=== PATIENT | female | born 1950 | race African-American/Black ===

== ENCOUNTER 2017-08-15 13:46 | Emergency (ER) | payer MEDICARE ==
--- NOTE | 2017-08-15 14:42 | UC ---
Cardiac HPI - HPI Summary HPI Summary: 67 y/o female PMHX HTN, dyslipidemia presents to the urgent care c/o burning chest and epigastric discomfort for the past 4 days. Pt states pain is on and off for few minutes. She took some tums with mild relief. Pain is 2/10 now and radiating to her chest. Pt denies SOB, N/V/D, dizziness. She has not taken her BP medication today. 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 Onset/Duration: Gradual Onset, Lasting Days - 4 days, Worse Since - today Timing: Intermittent Episodes Lasting: - minutes Initial Severity: Mild Current Severity: Mild Pain Intensity: 2 Chest Pain Location: Lower Sternal Character: Burning Aggravating Factor(s): Nothing Alleviating Factor(s): Rest Associated Signs & Symptoms: Positive: Abdominal Pain - epigastric. Negative: Fever - Risk Factors Pulmonary Embolism Risk Factors: Negative Cardiac Risk Factors: Hypertension, Elevated Lipids Atrial Fibrillation: Negative TAD Risk Factors: Negative - Allergy/Home Medications Allergies/Adverse Reactions: Allergies Allergy/AdvReac Type Severity Reaction Status Date / Time Azithromycin [From Zithromax] AdvReac GI Upset Verified 08/15/17 19:39 PMH/Surg Hx/FS Hx/Imm Hx Previously Healthy: Yes Endocrine History: Dyslipidemia Cardiovascular History: Hypertension Other History Of: Negative For: HIV, Hepatitis B, Hepatitis C, Anticoagulant Therapy - Surgical History Surgical History: Yes Surgery Procedure, Year, and Place: HYSTERECTOMY 1984;. 2011 BUNIONECTOMY WITH PINNING - Family History Known Family History: Positive: Cardiac Disease, Hypertension, Diabetes - Social History Occupation: Retired Alcohol Use: None Substance Use Type: None Smoking Status (MU): Never Smoked Tobacco - Immunization History Vaccination Up to Date: Yes Review of Systems Constitutional: Negative Skin: Negative Eyes: Negative ENT: Negative Respiratory: Negative Cardiovascular: Negative Gastrointestinal: Abdominal Pain - epigastric burning pain, Nausea - first day resolve today Genitourinary: Negative Motor: Negative Neurovascular: Negative Musculoskeletal: Negative Neurological: Negative Psychological: Negative Is Patient Immunocompromised?: No All Other Systems Reviewed And Are Negative: Yes Physical Exam Triage Information Reviewed: Yes Vital Signs: Initial Vital Signs Temp 97.9 F 08/15/17 14:12 Pulse 105 08/15/17 14:12 Resp 18 08/15/17 14:12 BP 162/73 08/15/17 14:12 Pulse Ox 100 08/15/17 14:12 - Additional Comments Vital Signs Reviewed: Yes General:Patient is a well developed and nourished female who is sitting comfortable in the examining table. Patient is not in any acute respiratory distress. Eyes: Positive: Conjunctiva Clear - PERRLA, EOMI, fundi grossly normal ENT: Positive: Normal ENT inspection, Hearing grossly normal, Pharynx normal, TMs normal Neck: Positive: Supple, Nontender, No Lymphadenopathy Respiratory: Positive: Chest non-tender, Lungs clear, Normal breath sounds, No respiratory distress Cardiovascular: Positive: RRR,S1 and S2 present, No Murmur, Pulses Normal, Brisk Capillary Refill Abdomen Description: Positive:Abd: Flat with no distention. No surface trauma, scars, incisions. hyperactive bowel sounds present in all four quadrants. mild tenderness on depp palpation over the epigastric area, no guarding, rigidity to palpation. No masses palpated, no pulsation in epigastric area. No organomegaly. Negative [place] signs. No periumbilical tenderness. No rebound in the lower quadrants. NT over [place] point.. Good femoral pulses bilaterally. No hernia noted. No CVAT bilaterally Musculoskeletal: Positive: Strength Intact, ROM Intact, No Edema,FROM in all major joints, no edema, no cyanosis or clubbing. Neuro: Alert and oriented x 3. No acute neurological deficits. Speech is normal. Psycological: WNL Skin: Dry and warm - Assessment/Plan Course Of Treatment: 67 y/o female PMHX HTN, dyslipidemia presents to the urgent care c/o chest burning and epigastric discomfort for the past 4 days. Pt states pain is on and off for few minutes. She took some tums with mild relief. Pain is 2/10 and radiating to her chest. Pt denies SOB, N/V/D, dizziness. She has not taken her BP medication today. Hx obtained. EKG:NSR at 98bpm with ST depression at leads I, II and II and ST-depression on leads V4-V5-V6. No other EKG for comparison at this moment. I consulted Pt's symptoms with DR Kong and he recommended Pt to go to the ER by ambulance trnasfer for further evaluation and treatment. I called [facility] and Spoke to Brigitte Martinez and she accepted the patient. Pt was transferred to the ER via ambulance. Pt left the clinic A&OX3 and hemodynamically stable in the ambulance. - Differential Diagnoses - Chest Pain Differential Diagnosis/HQI/PQRI: Acute IL, Angina, GI Disease - Differential Diagnoses - Hypertension Differential Diagnosis/HQI PQRI: Myocardial Infarction - Differential Diagnoses - Palpitations Differential Diagnosis/HQI/PQRI: Coronary Artery Disease - Clinical Impression Provider Diagnoses: 1- Acute epigastric pain. 2-Abnormal EKG r/o ACS. 3- uncontrolled HTN. 4- Tachycardia - Physician Notifications Discussed Patient Care With: Jorge Alberto Kong - DR Kong recommends Pt to go immediately to the ER for further treatment. Discharge - Discharge Plan Condition: Stable Disposition: TRANS HIGHER LVL OF CARE FAC Referrals: Swathi Presley MD [Primary Care Provider] -
[2017-08-15 16:21] VITALS: BP 156/76
== END 2017-08-15 15:00 | disposition short-term general hospital (02) ==
LOC: UCEAST 13:46
DX: R10.13 Epigastric pain (principal); R94.31 Abnormal electrocardiogram [ECG] [EKG]; I10 Essential (primary) hypertension; R00.0 Tachycardia, unspecified
CPT/HCPCS: 93005; 99213; G0463

== ENCOUNTER 2017-08-15 15:13 | Observation (INO) | payer MEDICARE ==
[2017-08-15] MEDS ORDERED: Pantoprazole IV* 40 MG IV ONE (16:01)
[2017-08-15] MEDS ORDERED: NS 0.9% 1000 ML* 1,000 ML IV ONE (16:01)
[2017-08-15 16:39] LABS: Hematocrit 41 % (35-47); Hemoglobin 13.3 g/dl (12.0-16.0); Mean Corpuscular HGB Conc 33 g/dl (31-36); Mean Corpuscular Hemoglobin 25 pg (27-31); Mean Corpuscular Volume 75 fL (80-97); Mean Platelet Volume 10 um3 (7.4-10.4); Red Blood Count 5.42 10^6/ul (4.0-5.4); Red Cell Distribution Width 14 % (10.5-15); White Blood Count 5.3 10^3/ul (3.5-10.8)
--- NOTE | 2017-08-15 16:39 | RAD ---
HISTORY: Epigastric, lower chest pain COMPARISONS: None VIEWS: 1: frontal portable view of the chest at 4:15 PM FINDINGS: LINES AND TUBES: None. CARDIOMEDIASTINAL SILHOUETTE: The cardiomediastinal silhouette is normal for portable technique. PLEURA: The costophrenic angles are sharp. No pleural abnormalities are noted. LUNG PARENCHYMA: The lungs are clear. ABDOMEN: The upper abdomen is clear. There is no subphrenic gas. BONES AND SOFT TISSUES: No bone or soft tissue abnormalities are noted. IMPRESSION: NO ACTIVE CARDIOPULMONARY DISEASE.
[2017-08-15 16:52] LABS: ALT 18 U/L (7-52); AST 22 U/L (13-39); Albumin 4.6 g/dL (3.2-5.2); Alkaline Phosphatase 73 U/L (34-104); Anion Gap 10 mmol/L (2-11); BUN/Creatinine Ratio 12.3 (8-20); Blood Urea Nitrogen 14 mg/dL (6-24); C Reactive Protein < 1.00 mg/L (< 5.00); CO2 Carbon Dioxide 29 mmol/L (22-32); Calcium 9.9 mg/dL (8.6-10.3); Chloride 100 mmol/L (101-111); Creatine Kinase 55 U/L (10-223); EGFR African American 61.1 (>60); EGFR Non-African American 47.5 (>60); Globulin 3.7 g/dL (2-4); Glucose 100 mg/dL (70-100); Lipase 13 U/L (11.0-82.0); Magnesium 1.9 mg/dL (1.9-2.7); Sodium 139 mmol/L (133-145); Total Protein 8.3 g/dL (6.4-8.9)
[2017-08-15 17:06] LABS: TSH (Thyroid Stimulating Horm) 0.81 mcIU/mL (0.34-5.60)
[2017-08-15 18:07] LABS: Urine Bacteria 1+ (Absent); Urine Bilirubin Negative (Negative); Urine Glucose Negative (Negative); Urine Nitrite Negative (Negative)
--- NOTE | 2017-08-15 18:15 | ED ---
Jassi Trevino Thomas, scribed for Florentin Max MD on 08/15/17 at 1601 . HPI Chest Pain - HPI Summary HPI Summary: The patient is a 67 year old female referred from Urgent Care with heartburn that has been intermittent over the last two weeks. She has no pain in the ED, but she did have pain earlier today, prompting evaluation. The pain does not radiate and is described as heartburn. The pain is 10/10 at its worst, but 0/10 in the ED. It is aggravated by some foods and is alleviated by Tums. The patient notes occasional bouts of nausea. She denies SOB and leg swelling. - History of Current Complaint Chief Complaint: EDChestPainROMI Time Seen by Provider: 08/15/17 15:48 Hx Obtained From: Patient Hx Last Menstrual Period: Not for years. Onset/Duration: Started Weeks Ago - 2, Still Present Timing: Intermittent Initial Severity: Moderate Current Severity: None Pain Intensity: 0 Pain Scale Used: 0-10 Numeric Chest Pain Radiates: No Character: Burning Aggravating Factor(s): Other: - Some foods Alleviating Factor(s): Other: - Tums Associated Signs and Symptoms: Positive: Chest Pain, Nausea. Negative: Shortness of Breath, Edema - Allergy/Home Medications Allergies/Adverse Reactions: Allergies Allergy/AdvReac Type Severity Reaction Status Date / Time Azithromycin [From Zithromax] Allergy GI Upset Verified 10/20/15 08:35 Home Medications: Home Medications Aspirin EC Low Dose* [Ecotrin EC Low Dose 81 MG*] 81 mg PO DAILY 08/15/17 [ History Confirmed 08/15/17] Calcium Carbonate-Vitamin D [Calcium 600+D] 1 tab PO DAILY 08/15/17 [History Confirmed 08/15/17] Cetirizine HCl [All Day Allergy] 10 mg PO DAILY PRN 08/15/17 [History Confirmed 08/15/17] Conjugated Estrogens VAG CM* [Premarin VAG CREAM*] 0.5 applic VAGINAL .SEE DIRECTIONS 08/15/17 [History Confirmed 08/15/17] Magnesium 250 mg PO DAILY 08/15/17 [History Confirmed 08/15/17] Mometasone Furoate (Nasal) [Mometasone Furoate] 50 mcg NA BID PRN 08/15/17 [ History Confirmed 08/15/17] [place]-3 Fatty Acids [Fish Oil] 1,000 mg PO DAILY 08/15/17 [History Confirmed ] Potassium Chlor TAB* [Klor Con ER TAB*] 10 meq PO DAILY 08/15/17 [History Confirmed 08/15/17] PMH/Surg Hx/FS Hx/Imm Hx Previously Healthy: Yes Endocrine/Hematology History: Denies: Hx Anticoagulant Therapy, Hx Diabetes Cardiovascular History: Reports: Hx Hypertension Denies: Hx Congestive Heart Failure, Hx Deep Vein Thrombosis, Hx Myocardial Infarction, Hx Pacemaker/ICD Respiratory History: Denies: Hx Asthma, Hx Chronic Obstructive Pulmonary Disease (COPD), Hx Lung Cancer, Hx Pneumonia, Hx Pulmonary Embolism GI History: Denies: Hx Gall Bladder Disease, Hx Gastrointestinal Bleed, Hx Ulcer, Hx Urosepsis History: Denies: Hx Kidney Stones, Hx Renal Disease Musculoskeletal History: Denies: Hx Rheumatoid Arthritis, Hx Osteoporosis Sensory History: Denies: Hx Hearing Aid Neurological History: Denies: Hx Dementia, Hx Migraine, Hx Seizures, Hx Transient Ischemic Attacks (TIA) Psychiatric History: Denies: Hx Anxiety, Hx Depression, Hx Panic Disorder, Hx Schizophrenia, Hx Bipolar Disorder - Cancer History Hx Chemotherapy: No Hx Radiation Therapy: No - Surgical History Surgery Procedure, Year, and Place: HYSTERECTOMY 1984;. 2011 BUNIONECTOMY WITH PINNING Infectious Disease History: No Infectious Disease History: Denies: Traveled Outside the [place] in Last 30 Days - Family History Known Family History: Positive: Cardiac Disease, Hypertension, Diabetes - Social History Alcohol Use: None Substance Use Type: Reports: None Smoking Status (MU): Never Smoked Tobacco Review of Systems Positive: Chest Pain Negative: Shortness Of Breath Positive: Nausea Negative: Edema All Other Systems Reviewed And Are Negative: Yes Physical Exam - Summary Physical Exam Summary: General: well-appearing, no pain distress Skin: warm, color reflects adequate perfusion, dry Head: normal Eyes: EOMI, VIRY ENT: normal Neck: supple, nontender Respiratory: CTA, breath sounds present Cardiovascular: RRR Abdomen: Soft. There is mild tenderness in the epigastrium at palpation. Bowel: present Musculoskeletal: normal, strength/ROM intact Neurological: normal, sensory/motor intact, A&O x3 Psychological: affect/mood appropriate Triage Information Reviewed: Yes Vital Signs On Initial Exam: Initial Vitals Temp Pulse Resp BP Pulse Ox 98.2 F 106 16 169/76 100 08/15/17 15:22 08/15/17 15:22 08/15/17 15:22 08/15/17 15:22 08/15/17 15:22 Vital Signs Reviewed: Yes Diagnostics - Vital Signs Vital Signs Temp Pulse Resp BP Pulse Ox 08/15/17 15:22 98.2 F 106 16 169/76 100 - Laboratory Lab Results: Lab Results 08/15/17 08/15/17 08/15/17 Range/Units 14:45 14:45 14:45 WBC (3.5-10.8) 10^3/ul RBC (4.0-5.4) 10^6/ul Hgb (12.0-16.0) g/dl Hct (35-47) % MCV (80-97) fL MCH (27-31) pg MCHC (31-36) g/dl RDW (10.5-15) % Plt Count (150-450) 10^3/ul MPV (7.4-10.4) um3 Neut % (Auto) (38-83) % Lymph % (Auto) (25-47) % Lewis % (Auto) (1-9) % Eos % (Auto) (0-6) % Baso % (Auto) (0-2) % Absolute Neuts (auto) (1.5-7.7) 10^3/ul Absolute Lymphs (auto) (1.0-4.8) 10^3/ul Absolute Monos (auto) (0-0.8) 10^3/ul Absolute Eos (auto) (0-0.6) 10^3/ul Absolute Basos (auto) (0-0.2) 10^3/ul Absolute Nucleated RBC 10^3/ul Nucleated RBC % INR (Anticoag Therapy) 0.95 (0.77-1.02) APTT 36.4 H (26.0-36.3) seconds D-Dimer, Quantitative < 200 (Less Than 230) ng/mL Sodium 139 (133-145) mmol/L Potassium 3.0 L (3.5-5.0) mmol/L Chloride 100 L (101-111) mmol/L Carbon Dioxide 29 (22-32) mmol/L Anion Gap 10 (2-11) mmol/L BUN 14 (6-24) mg/dL Creatinine 1.14 H (0.51-0.95) mg/dL Est GFR ( Amer) 61.1 (>60) Est GFR (Non-Af Amer) 47.5 (>60) BUN/Creatinine Ratio 12.3 (8-20) Glucose 100 (70-100) mg/dL Lactic Acid (0.5-2.0) mmol/L Calcium 9.9 (8.6-10.3) mg/dL Magnesium 1.9 (1.9-2.7) mg/dL Total Bilirubin 0.40 (0.2-1.0) mg/dL AST 22 (13-39) U/L ALT 18 (7-52) U/L Alkaline Phosphatase 73 (34-104) U/L Total Creatine Kinase 55 (10-223) U/L CK-MB (CK-2) 0.4 L (0.6-6.3) ng/mL Troponin I 0.00 (<0.04) ng/mL C-Reactive Protein < 1.00 (< 5.00) mg/L B-Natriuretic Peptide 27 ( - 100) pg/mL Total Protein 8.3 (6.4-8.9) g/dL Albumin 4.6 (3.2-5.2) g/dL Globulin 3.7 (2-4) g/dL Albumin/Globulin Ratio 1.2 (1-3) Lipase 13 (11.0-82.0) U/L TSH 0.81 (0.34-5.60) mcIU/mL Urine Color Urine Appearance Urine pH (5-9) Ur Specific [place] (1.010-1.030) Urine Protein (Negative) Urine Ketones (Negative) Urine Blood (Negative) Urine Nitrate (Negative) Urine Bilirubin (Negative) Urine Urobilinogen (Negative) Ur Leukocyte Esterase (Negative) Urine WBC (Auto) (Absent) Urine RBC (Auto) (Absent) Ur Squamous Epith Cells (Absent) Urine Bacteria (Absent) Urine Glucose (Negative) 08/15/17 08/15/17 08/15/17 Range/Units 14:45 14:45 17:45 WBC 5.3 (3.5-10.8) 10^3/ul RBC 5.42 H (4.0-5.4) 10^6/ul Hgb 13.3 (12.0-16.0) g/dl Hct 41 (35-47) % MCV 75 L (80-97) fL MCH 25 L (27-31) pg MCHC 33 (31-36) g/dl RDW 14 (10.5-15) % Plt Count 169 (150-450) 10^3/ul MPV 10 (7.4-10.4) um3 Neut % (Auto) 45.1 (38-83) % Lymph % (Auto) 42.4 (25-47) % Lewis % (Auto) 9.0 (1-9) % Eos % (Auto) 2.3 (0-6) % Baso % (Auto) 1.2 (0-2) % Absolute Neuts (auto) 2.4 (1.5-7.7) 10^3/ul Absolute Lymphs (auto) 2.3 (1.0-4.8) 10^3/ul Absolute Monos (auto) 0.5 (0-0.8) 10^3/ul Absolute Eos (auto) 0.1 (0-0.6) 10^3/ul Absolute Basos (auto) 0.1 (0-0.2) 10^3/ul Absolute Nucleated RBC 0 10^3/ul Nucleated RBC % 0.1 INR (Anticoag Therapy) (0.77-1.02) APTT (26.0-36.3) seconds D-Dimer, Quantitative (Less Than 230) ng/mL Sodium (133-145) mmol/L Potassium (3.5-5.0) mmol/L Chloride (101-111) mmol/L Carbon Dioxide (22-32) mmol/L Anion Gap (2-11) mmol/L BUN (6-24) mg/dL Creatinine (0.51-0.95) mg/dL Est GFR ( Amer) (>60) Est GFR (Non-Af Amer) (>60) BUN/Creatinine Ratio (8-20) Glucose (70-100) mg/dL Lactic Acid 1.6 (0.5-2.0) mmol/L Calcium (8.6-10.3) mg/dL Magnesium (1.9-2.7) mg/dL Total Bilirubin (0.2-1.0) mg/dL AST (13-39) U/L ALT (7-52) U/L Alkaline Phosphatase (34-104) U/L Total Creatine Kinase (10-223) U/L CK-MB (CK-2) (0.6-6.3) ng/mL Troponin I (<0.04) ng/mL C-Reactive Protein (< 5.00) mg/L B-Natriuretic Peptide ( - 100) pg/mL Total Protein (6.4-8.9) g/dL Albumin (3.2-5.2) g/dL Globulin (2-4) g/dL Albumin/Globulin Ratio (1-3) Lipase (11.0-82.0) U/L TSH (0.34-5.60) mcIU/mL Urine Color Yellow Urine Appearance Clear Urine pH 5.0 (5-9) Ur Specific [place] 1.027 (1.010-1.030) Urine Protein Negative (Negative) Urine Ketones Negative (Negative) Urine Blood 1+ H (Negative) Urine Nitrate Negative (Negative) Urine Bilirubin Negative (Negative) Urine Urobilinogen Negative (Negative) Ur Leukocyte Esterase Negative (Negative) Urine WBC (Auto) Trace(0-5/hpf) (Absent) Urine RBC (Auto) Trace(0-2/hpf) (Absent) Ur Squamous Epith Cells Present H (Absent) Urine Bacteria 1+ H (Absent) Urine Glucose Negative (Negative) Result Diagrams: 08/15/17 14:45 08/15/17 14:45 Lab Statement: Any lab studies that have been ordered have been reviewed, and results considered in the medical decision making process. - Radiology CXR Xray Interpretation: No Acute Changes - No active cardiopulmonary disease. Dr. Max has reviewed this report. Radiology Interpretation Completed By: Radiologist - EKG 1604 Cardiac Rate: Tachycardia EKG Rhythm: Sinus Rhythm - 101 BPM EKG Interpretation: ST depressions lateral leads, no ectopy Chest Pain Course/Dx - Course Course Of Treatment: SOME ST CHANGES ON EKG. DISCUSSED WITH DR AGUILAR. DISCUSSED RESULTS WITH PATIENT/FAMILY. ADMIT HOSPITALIST. - Diagnoses Provider Diagnoses: Chest pain - Provider Notifications Discussed Care Of Patient With: Lee Aguilar Time Discussed With Above Provider: 18:08 Instructed by Provider To: Other - I consulted Dr. Aguilar (database manager), who recommends admission. Discharge - Discharge Plan Condition: Stable Disposition: ADMITTED TO [facility] Referrals: Swathi Presley MD [Primary Care Provider] - The documentation as recorded by the Jassi farooq Thomas accurately reflects the service I personally performed and the decisions made by me, Florentin Max MD.
[2017-08-15] MEDS ORDERED: Acetaminophen TAB* 325 MG PO PRN (19:24)
[2017-08-15] MEDS ORDERED: Al Hydrox/Mg Hydrox/Simet LIQ* 30 ML UDC PO PRN (19:24)
[2017-08-15] MEDS ORDERED: Ondansetron INJ* 2 MG/ML VIAL IV PRN (19:24)
[2017-08-15] MEDS ORDERED: Fluticasone NASAL SPRAY 50MCG* 16 gm SPRAY BTL BOTH NARES PRN (19:28)
[2017-08-15] MEDS ORDERED: Potassium Chlor TAB* 20 MEQ TAB.ER PO ONE (19:28)
[2017-08-15] MEDS ORDERED: Aspirin Low Dose CHEW TAB* 81 MG PO ONE (19:53)
[2017-08-15] MEDS: Atorvastatin* 10 MG TAB PO SCH (21:35)
[2017-08-15] MEDS: Magnesium Oxide TAB* 400 MG PO SCH (21:38)
[2017-08-15] MEDS: Hydrochlorothiazide TAB* 25 MG PO SCH (21:38)
[2017-08-15] MEDS: Heparin VIAL(*) 5000 UNITS/ML VIAL (FIVE THOUSAND) SUBCUT SCH (21:39)
--- NOTE | 2017-08-15 22:27 | HP ---
CC: Dr. Swathi Presley * MEDICINE HISTORY AND PHYSICAL: DATE OF ADMISSION: 08/15/17 PROVIDER: Dyllan Carter NP ATTENDING PHYSICIAN: Dr. Joe Dominguez * (as dictated by Dyllan Carter NP) PRIMARY CARE PROVIDER: Dr. Swathi Presley. CHIEF COMPLAINT: Chest pain. HISTORY OF PRESENT ILLNESS: This is a very pleasant 67-year-old female, who reported to Urgent Care after baptism today for evaluation of persistent epigastric pain. She states that a few weeks ago, she was drinking coffee on a regular basis, then stopped. She then noticed after that she would eat and then start noticing heartburn-type symptoms in the epigastric area that last for a few minutes. She said this has persisted for several days into this past week. She most noticed that especially if she eats spicy foods or irritating foods. Occasionally, she does wake up with discomfort in the chest and feeling as if she has to belch. In one episode, she noted she had nausea. She has been taking Tums and has received mild relief from that. At its worst, it is 10 /10, today it was a 2/10, and after baptism, she thought that she would come to the Urgent Care to get it checked out. While at Urgent Care, the patient was noted to have an EKG that was concerning for borderline ST depression in leads V4 and V5 and some QTc prolongation, she was referred to the ER for further evaluation. Here in the ER, she has denied any chest pain or discomfort. Her EKG again shows sinus rhythm, but was some borderline depression in the V4 and V5 leads and with this concern, the ER physician contacted Dr. Renteria of the cardiology group, who conveyed that the safest thing for the patient would be for her to come in and have a stress test. Ms. Boudreaux denies any recent illness, fever, or chills. She does state at baseline that she had some insomnia and difficulty with sleeping and occasionally daytime sleepiness, but feels adamant that she does not have sleep apnea; however, she does state that she will fall asleep during the daytime if she is reading or watching television. Previously, she was staying up to 3 to 5 in the morning and then falling asleep for a few hours and waking up. It is unclear if the issue is with falling asleep or staying asleep, although I suspect that it is staying asleep. She has never been screened for sleep apnea. Again, she currently denies chest pain. She denies any changes to her weight. She denies lower extremity edema, shortness of breath, cough, abdominal pain, and no nausea, vomiting, diarrhea other than the 1 episode of nausea that happened transiently with her heartburn. She denies any dysuria or weakness. At baseline, she does have some chronic joint pain, but nothing new out of the ordinary, she denies any rashes or lesions. Here in the ER, the patient had a potassium of 3.0. Her chest x-ray showed no active cardiopulmonary disease. PAST MEDICAL HISTORY: 1. Hypertension. 2. Dyslipidemia. PAST SURGICAL HISTORY: Includes a hysterectomy and bunionectomy with pinning. HOME MEDICATIONS: 1. Calcium carbonate vitamin D supplement 1 tab daily. 2. Conjugated estrogen vaginal cream 0.5 one application vaginally 2 times a week. 3. Cetirizine 10 mg daily p.r.n. 4. Mometasone nasal spray 50 mcg to both nares b.i.d. p.r.n. 5. Magnesium 250 mg daily. 6. Coenzyme Q10 50 mg daily. 7. [place]-3 fatty acids 1000 mg daily. 8. Aspirin 81 mg daily. 9. Hydrochlorothiazide 25 mg daily. 10. Potassium chloride 10 mEq daily. 11. Simvastatin 10 mg daily. ALLERGIES: Include AZITHROMYCIN. FAMILY HISTORY: She reports brother that has a history of coronary artery disease and is status post stent placement. Her father of heart attack in his 90s. She reports diabetes in both her mother and father's side and a sister with breast cancer. SOCIAL HISTORY: She reports a very remote short history of smoking when she was a teenager. She denies any history of illicit drug use or alcohol use. She has cut caffeine from her diet and states that she is no longer using coffee , although she does still drink caffeinated tea and other beverages. She is retired. 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 She is . She has 4 children. Her , El Boudreaux, is her surrogate decision maker in the event of emergency. REVIEW OF SYSTEMS: As per HPI, a 14-point review of systems was attempted and completed. All others not mentioned in the HPI are negative. PHYSICAL EXAMINATION VITAL SIGNS: Temperature 98.1, heart rate 108, respiratory rate 20, blood pressure 136/66, O2 saturation 100% on room air. HEENT: Head is atraumatic and normocephalic. Face is symmetrical. Pupils are equal, round, and reactive to light. Oral mucosa is moist. There is no oropharyngeal erythema or exudate. NECK: Supple. No JVD noted. No lymphadenopathy appreciated. LUNGS: Clear to auscultation throughout. CARDIAC: S1 and S2, heart sounds, regular rate and rhythm. No murmurs, rubs, or gallops. No peripheral edema noted. Distal pulses are 2+ throughout. ABDOMEN: Soft, nontender, nondistended. Bowel sounds are normoactive times all 4 quadrants. MUSCULOSKELETAL: No clubbing or cyanosis. The patient has full range of motion. NEURO: Cranial nerves II through XII are grossly intact. No focal deficits noted. The patient moves all extremities. Sensation was intact to light touch to lower extremities. PSYCH: She is pleasant, alert, and oriented x3. Affect is appropriate and no observable anxiety or depression. SKIN: Limited assessment but grossly intact. DIAGNOSTIC STUDIES/LAB DATA: CBC: WBC 5.3, hemoglobin 13.3, hematocrit 41, platelet count 169. INR 0.95. D-dimer less than 200. CMP: Sodium 139, potassium 3.0, chloride 100, carbon dioxide 29, BUN 14, creatinine 1.14, glucose 100, lactic acid 1.6, calcium 9.9, magnesium 1.9. Total bilirubin 0.4, AST 22, ALT 18, alk phos 73. Total CK . Troponin 0.00. CRP less than 1. BNP 27. Albumin 4.6, lipase 13. TSH 0.81. Urinalysis is unremarkable. Urine nitrites and leukocyte esterase noted. Chest x-ray and EKG as per the HPI. ASSESSMENT AND PLAN: This is a 67-year-old female, who presents today with epigastric pain and ST depressions on her EKG that are concerning for potential cardiac etiology. She will be admitted as an observation patient to the telemetry floor. Plans are as follows: 1. Chest pain. Admit to telemetry. The patient's initial troponin was 0. I will repeat this troponin now and then rechecking them every 3 hours. I did review EKG. The patient's symptoms are more consistent with gastroesophageal reflux disease than cardiac etiology; however, given the EKG changes, it seems prudent to check a stress testing. The patient does have a FABIO score of 3, so we will keep her overnight for observation and plan to do stress test in the morning. I will check a lipid profile and A1c. The patient's blood pressure is here currently controlled. She is not a current smoker. She has received aspirin and we will continue her on baby aspirin. She will be n.p.o. after midnight for nuclear stress test. I will start the patient on omeprazole in the morning to see if it helps with her symptoms. She has already received pantoprazole here in the ER. 2. Hypokalemia. Suspect secondary to the patient's hydrochlorothiazide use. We replete with p.o. potassium 40 mEq tonight and continue with 10 mEq daily dose, recheck BMP tomorrow. 3. Elevated creatinine. Suspect that the patient has some baseline kidney disease as her previous creatinine from 2 years ago was 1.2. Continue to monitor. The patient does appear to be appropriately hydrated. 4. History of hypertension. Again, the patient's blood pressures are well controlled. As she did miss her medications today, we will give her hydrochlorothiazide tonight and monitor her blood pressure trends. 5. History of hyperlipidemia. Continue simvastatin. 6. FEN. The patient is ordered a heart-healthy diet. She is to be n.p.o. after midnight except for medications. 7. DVT prophylaxis. The patient is ordered subcu heparin and SCDs. 8. Code status. She is a full code. TIME SPENT: Approximately 60 minutes was spent on this admission, more than half of that time was spent [id number] with the patient and her family obtaining history and physical, performing the physical examination, and reviewing the plan of care. Plan of care was also discussed with my attending, Dr. Dominguez, who is in agreement. DYLLAN CARTER, WALKER [id number]/[facility] #: [id number] AYALA
[2017-08-16] MEDS: Heparin VIAL(*) 5000 UNITS/ML VIAL (FIVE THOUSAND) SUBCUT SCH (05:28)
[2017-08-16 05:55] LABS: BUN/Creatinine Ratio 10.9 (8-20); Calcium 8.9 mg/dL (8.6-10.3); EGFR African American 63.7 (>60); EGFR Non-African American 49.5 (>60); HDL Cholesterol 43.9 mg/dL; Potassium 3.6 mmol/L (3.5-5.0)
[2017-08-16] MEDS ORDERED: Omeprazole CAP* 20 MG PO SCH (06:00)
[2017-08-16 07:51] VITALS: BP 144/66
[2017-08-16] MEDS: Hydrochlorothiazide TAB* 25 MG PO SCH (08:03)
[2017-08-16] MEDS: Magnesium Oxide TAB* 400 MG PO SCH (08:03)
[2017-08-16] MEDS: Atorvastatin* 10 MG TAB PO SCH (08:04)
[2017-08-16] MEDS ORDERED: OMEGA-3 FATTY ACIDS (NF) 1,000 MG CAP PO SCH (09:00)
[2017-08-16] MEDS ORDERED: Potassium Chlor TAB* 10 MEQ TAB.ER PO SCH (09:00)
[2017-08-16] MEDS ORDERED: Aspirin EC Low Dose* 81 MG TAB.EC PO SCH (09:00)
[2017-08-16] MEDS ORDERED: Calcium/Vitamin D TAB 250/125* TAB PO SCH (09:00)
--- NOTE | 2017-08-16 11:53 | RAD ---
HISTORY: Chest pain, ST depression COMPARISONS: None TECHNIQUE: A 1 day stress/rest myocardial perfusion study was performed, with exercise stress. The exercise portion was performed using the Albino protocol, for a total METs of 7. The stress portion was monitored by Dr. Bhatia. Gated SPECT imaging was performed, with CT-based attenuation correction DOSE: Stress: Technetium 99m tetrofosmin, 25.43 millicuries, injected at 9:28 AM on August 16, 2017 Rest: Technetium 99m tetrofosmin, 10.99 millicuries, injected at 6:25 AM on August 16, 2017 Pharmacologic agent: None FINDINGS: CARDIAC MONITORING: Peak heart rate of 1 69 bpm, 110% of predicted EF: 87% TID: 1.09 MOTION: Normal motion, with normal wall thickening. PERFUSION: There are no fixed or reversible perfusion defects. OTHER: None IMPRESSION: NORMAL EJECTION FRACTION. NO FIXED OR REVERSIBLE PERFUSION DEFECTS. ASSESSMENT: LOW RISK. Based on imaging criteria from ACC/AHA 2002. Guideline Update for the Management of Patient's with Chronic Stable Angina, table 23. Noninvasive Risk Stratification. CPT II Codes: 7991N1I
--- NOTE | 2017-08-16 12:14 | PN ---
Subjective Date of Service: 08/16/17 Interval History: Patient seen and examined at bedside. Denies fever, chills, shortness of breath , chest discomfort, N/V/D. Pt reports that her indigestion has improved. Tele: Sinus rhythm, rate 60-70's Family History: Unchanged from Admission Social History: Unchanged from Admission Past Medical History: Unchanged from Admission Objective Active Medications: Acetaminophen (Tylenol Tab*) 650 mg PO Q4H PRN Reason: FEVER/PAIN Al Hydrox/Mg Hydrox/Simethicone (Maalox Plus*) 30 ml PO Q6H PRN Reason: INDIGESTION Aspirin (Aspirin Ec Low Dose*) 81 mg PO DAILY ARTHUR Atorvastatin Calcium (Lipitor*) 5 mg PO DAILY ARTHUR Calcium/Vitamin D (Oscal D Tab 250/125*) 1 tab PO DAILY ARTHUR Fish Oil (Fish Oil (Nf)) 1,000 mg PO DAILY ARTHUR Fluticasone Propionate (Flonase Nasal [place] 50mcg*) 2 spray BOTH NARES DAILY PRN Reason: ALLERGY SYMPTOMS Heparin Sodium (Porcine) (Heparin Vial(*)) 5,000 units SUBCUT Q8HR ARTHUR Hydrochlorothiazide (Hydrodiuril Tab*) 25 mg PO DAILY ARTHUR Magnesium Oxide (Magox 400 Tab*) 400 mg PO DAILY ARTHUR Omeprazole (Prilosec Cap*) 20 mg PO 0600 ARTHUR Ondansetron HCl (Zofran Inj*) 4 mg IV Q6H PRN Reason: NAUSEA/VOMITING Potassium Chloride (Klor Con Er Tab*) 10 meq PO DAILY ARTHUR Vital Signs - 8 hr 08/16/17 08/16/17 07:20 07:51 Temperature 97.5 F Pulse Rate 90 Respiratory 20 20 Rate Blood Pressure 144/66 (mmHg) O2 Sat by Pulse 100 Oximetry Oxygen Devices in Use Now: None Appearance: NAD, sitting up in bed Ears/Nose/Mouth/Throat: Mucous Membranes Moist Neck: NL Appearance and Movements; NL JVP Respiratory: Clear to Auscultation Cardiovascular: NL Sounds; No Murmurs; No JVD Abdominal: NL Sounds; No Tenderness; No Distention Extremities: No Edema Skin: No Rash or Ulcers Neurological: Alert and Oriented x 3, NL Muscle Strength and Tone Lines/Tubes/Other Access: Clean, Dry and Intact Peripheral IV - site benign Nutrition: Taking PO's Result Diagrams: 08/15/17 14:45 08/16/17 04:54 Additional Lab and Data: Assess/Plan/Problems-Billing Assessment: Ms. Boudreaux is a 67 yo female with PMH significant for HTN and HLD who presented to the emergency room with complaints of epigastric pain and was found to have ST depressions on her EKG. - Patient Problems (1) Epigastric pain Code(s): R10.13 - EPIGASTRIC PAIN SNOMED Code(s): 11908079 Comment: - Suspect secondary to acid reflux - Cardiac stress testing - low risk - Troponin 0.00 x3 - Lipids WNL - HgA1C - 5.6 (2) Electrolyte abnormality Code(s): E87.8 - OTH DISORDERS OF ELECTROLYTE AND FLUID BALANCE, NEC SNOMED Code(s): 692181026 Comment: - Hypokalemia - Resolved (3) HTN (hypertension) Code(s): I10 - ESSENTIAL (PRIMARY) HYPERTENSION SNOMED Code(s): 57077435 Comment: - SBP 120-160's - Continue HCTZ (4) HLD (hyperlipidemia) Code(s): E78.5 - HYPERLIPIDEMIA, UNSPECIFIED SNOMED Code(s): 22822954 Comment: - Continue simvastatin (5) CKD (chronic kidney disease) stage 3, GFR 30-59 ml/min Code(s): N18.3 - CHRONIC KIDNEY DISEASE, STAGE 3 (MODERATE) SNOMED Code(s): 044565055 Comment: - Creatinine appears to be at baseline (6) DVT prophylaxis Code(s): AXM0687 - SNOMED Code(s): 776261925 (7) Full code status Code(s): Z78.9 - OTHER SPECIFIED HEALTH STATUS SNOMED Code(s): 073910951 Status and Disposition: OBV. Stable for discharge to home today.
--- NOTE | 2017-08-17 07:48 | DS ---
CC: Dr. Swathi Presley * DISCHARGE SUMMARY: DATE OF ADMISSION: 08/15/17. DATE OF DISCHARGE: 08/16/17 ATTENDING PHYSICIAN: Evelio Archer MD * (dictated by Tesha Kinsey NP). PRIMARY DIAGNOSES: 1. Epigastric chest pain. 2. Hypokalemia. 3. Elevated creatinine. SECONDARY DIAGNOSES: 1. Hypertension. 2. Dyslipidemia. STUDIES WHILE IN THE HOSPITAL: 1. Chest x-ray from 08/15/17. Radiologist's impression: No active cardiopulmonary disease. 2. Nuclear exercise stress test from today. Fur Examiner's observation. Resting EKG, sinus tachycardia, 118. Nonspecific ST-segment scooping in II, III , AVF, V4 to V6, exercised by standard Albino protocol to 6 minutes achieving 7 METS. Heart rate to 110%, age predicted, normal 1 minute recovery heart rate. Baseline standing hypertension with increase with exertion. No reproduction of the patient's chest discomfort with exercise. Mild attenuation of baseline EKG abnormalities with exercise. Baseline EKG changes preclude accurate assessment of ischemia. No arrhythmias provoked. Fur Examiner's conclusion: Poor to fair exercise tolerance with baseline and mildly abnormal EKG precluding accurate assessment for ischemia. No profound evidence of myocardial ischemia by EKG or by symptoms at a low workload. Nuclear portion to be reported separately by Neurology. Radiologist's impression: Normal ejection fraction. No fixed or reversible perfusion defects. Assessment: Low risk. DISCHARGE MEDICATIONS: Continued home medications: 1. Calcium plus D3 1 tablet oral daily. 2. Premarin vaginal cream 0.5 topical vaginal twice weekly. 3. Cetirizine 10 mg oral daily as needed for allergy symptoms. 4. Mometasone furoate 50 mcg nasally twice daily as needed for congestion. 5. Magnesium 250 mg oral daily. 6. CoQ10 50 mg oral daily. 7. Fish oil 1000 mg oral daily. 8. Aspirin 81 mg oral daily. 9. Hydrochlorothiazide 25 mg oral daily. 10. Potassium chloride 10 mEq oral daily. 11. Simvastatin 10 mg oral daily. 12. Omeprazole 20 mg oral daily. HISTORY OF PRESENT ILLNESS/HOSPITAL COURSE: Ms. Boudreaux is a 67-year-old female with past medical history significant for hypertension and hyperlipidemia, who initially presented to urgent care for persistent epigastric discomfort. The patient states that a few weeks ago, she has been drinking coffee on a regular basis and then had stopped. She then started noticing after eating that she was having heartburn type symptoms in her epigastric area lasting for a few minutes. The symptoms persisted for several days over the past week. She noticed they were worse especially when eating spicy foods or other irritating foods. She occasionally was waking up with discomfort in her chest and feeling as though she had to belch and one episode she noted nausea. She had been taking Tums and was noticing mild relief from that. The patient presented to urgent care. She was noted to have an EKG concerning for borderline ST depressions in leads V2 and 5 and QTc prolongation and was referred to the emergency room. While in the emergency room, the patient denied any chest pain or discomfort. She had an EKG showing sinus rhythm with borderline depression in leads V4 and 5. The ER physician contacted Dr. Renteria with Cardiology who felt that the safest thing was the patient to be admitted to have a stress test. The hospitalists were asked to evaluate the patient for admission. While in the hospital, the patient's troponins were trended, she was flat at 0.00. She was monitored on telemetry and was in a sinus rhythm. Her hypokalemia resolved. She did an exercise nuclear stress test today showing a low risk. It is also to note that the patient had a sleep study because she reported insomnia and difficulty sleeping and occasionally daytime sleepiness. She was found to have O2 sats less than 89% for 19 minutes overnight. Ms. Boudreaux is stable for discharge to home today. Vital signs are as follows: Temperature 97.5, heart rate 98, respiratory rate 20, O2 sat 100% on room air, blood pressure 144/67. DISCHARGE PLAN: Ms. Boudreaux will be discharged to home. ACTIVITY: As tolerated. DIET: She should be on a heart-healthy diet. The patient has been ruled out for acute coronary syndrome at this time. Her hypomagnesemia has resolved and she has been continued on her home potassium replacement. As far as the patient's chest pain, I suspect this is secondary to acid reflux. I have started her on omeprazole 20 mg oral daily. The patient has an elevated creatinine. This appears to be her baseline. It appears she has stage 3 chronic kidney disease. As far as the patient's abnormal overnight pulse oximetry, she should be set up with home oxygen for nocturnal use or have a formal sleep eval to be set up with a CPAP as an outpatient. The patient has an appointment with her primary care provider, Dr. Presley on 08/18/17 at 11 a.m. Points of discussion at followup: The patient appears to have sleep apnea with oxygen saturation less than 89% for 19 minutes. She should be assessed with a formal outpatient sleep study to see if she qualifies for a CPAP. In the meantime, the patient is declining home oxygen for overnight use and would like to discuss this with her PCP. The patient has been asked to return to the emergency room for any chest pain, shortness of breath. This is a summarized report of a complex medical history and hospital stay. For further details, please see the entire medical record. TIME SPENT: Time for this discharge was 50 minutes, greater than half of that was spent with the patient discussing discharge plans and instructions. CONDITION ON DISCHARGE: Stable. Reviewed by HILARIO VALENTINE 08/18/172031 [id number]/[facility] #: [id number] AYALA
== END 2017-08-16 13:31 | disposition home or self-care (01) ==
LOC: ED 15:13 → MEDTELE 18:37
PROVIDERS: ADMIT Internal Medicine; ATTEND Internal Medicine
DX: R07.89 Other chest pain (principal); R00.0 Tachycardia, unspecified; R94.31 Abnormal electrocardiogram [ECG] [EKG]; R10.13 Epigastric pain; R12 Heartburn; E78.5 Hyperlipidemia, unspecified; E87.8 Other disorders of electrolyte and fluid balance, not elsewhere classified; N18.3 Chronic kidney disease, stage 3 (moderate); I12.9 Hypertensive chronic kidney disease with stage 1 through stage 4 chronic kidney disease, or unspecified chronic kidney disease; R94.4 Abnormal results of kidney function studies; G47.30 Sleep apnea, unspecified; Z79.899 Other long term (current) drug therapy
CPT/HCPCS: 36415; 71010; 78452; 80048; 80053; 80061; 81003; 81015; 82550; 82553; 83036; 83605; 83690; 83735; 83880; 84443; 84484; 85025; 85379; 85610; 85730; 86140; 87086; 93005; 93017; 96374; 96375; 99283; A9270-GY; A9502; G0378; J1644

== ENCOUNTER 2017-10-13 07:40 | Emergency (ER) | payer MEDICARE ==
[2017-10-13 07:52] VITALS: BP 135/72
--- NOTE | 2017-10-13 08:37 | UC ---
Lower Extremity/Ankle HPI - HPI Summary HPI Summary: SLIPPED ON ICE 4 DAYS AGO. HAS PERSISTENT PAIN AND SWELLING IN LEFT FOOT AND ANKLE. CAN WEIGHT BEAR BUT WITH PAIN. - History of Current Complaint Chief Complaint: UCLowerExtremity Stated Complaint: ANKLE INJURY Time Seen by Provider: 10/13/17 08:08 Hx Obtained From: Patient Hx Last Menstrual Period: Not for years. Onset/Duration: Sudden Onset, Lasting Days, Still Present Severity Initially: Moderate Severity Currently: Moderate Pain Intensity: 3 Pain Scale Used: 0-10 Numeric Aggravating Factor(s): Standing, Ambulation Alleviating Factor(s): Rest, Elevation Able to Bear Weight: Yes - WITH PAIN - Allergies/Home Medications Allergies/Adverse Reactions: Allergies Allergy/AdvReac Type Severity Reaction Status Date / Time MS Azithromycin AdvReac GI Upset Verified 08/15/17 19:39 [From Zithromax] PMH/Surg Hx/FS Hx/Imm Hx Cardiovascular History: Hypertension GI/ History: Gastroesophageal Reflux Other History Of: Negative For: HIV, Hepatitis B, Hepatitis C, Anticoagulant Therapy - Surgical History Surgical History: Yes Surgery Procedure, Year, and Place: HYSTERECTOMY 1984;. 2011 BUNIONECTOMY WITH PINNING - Family History Known Family History: Positive: Cardiac Disease, Hypertension, Diabetes - Social History Alcohol Use: None Substance Use Type: None Smoking Status (MU): Never Smoked Tobacco - Immunization History Vaccination Up to Date: Yes Review of Systems Constitutional: Negative Skin: Negative Respiratory: Negative Cardiovascular: Negative Gastrointestinal: Negative Musculoskeletal: Arthralgia, Decreased ROM, Edema All Other Systems Reviewed And Are Negative: Yes Physical Exam Triage Information Reviewed: Yes Appearance: Well-Appearing, No Pain Distress, Well-Nourished Vital Signs: Initial Vital Signs Temp 97.7 F 10/13/17 07:47 Pulse 79 10/13/17 07:47 Resp 17 10/13/17 07:47 BP 135/72 10/13/17 07:47 Pulse Ox 100 10/13/17 07:47 Vital Signs Reviewed: Yes Eyes: Positive: Conjunctiva Clear ENT: Positive: Hearing grossly normal Neck: Positive: Supple Respiratory: Positive: No respiratory distress, No accessory muscle use Cardiovascular: Positive: Pulses Normal Abdomen Description: Positive: Soft Musculoskeletal: Positive: ROM Limited @ - LEFT ANKLE, Edema @ - LEFT ANKLE, Other: - TTP LEFT ANKLE MALLEOLAR ZONE AND FOREFOOT Neurological: Positive: Alert Psychological: Positive: Age Appropriate Behavior Skin: Negative: rashes Diagnostics - Radiology LEFT ANKLE/FOOT XRAYS Xray Interpretation: No Acute Changes - 1. POST SURGICAL CHANGE TO THE FIRST METATARSAL. 2. OSTEOARTHRITIS OF THE FIRST MTP JOINT. 3. NO ACUTE OSSEOUS INJURY OF THE LEFT ANKLE OR LEFT FOOT. Radiology Interpretation Completed By: Radiologist Lower Extremity Course/Dx - Differential Dx/Diagnosis Provider Diagnoses: LEFT ANKLE SPRAIN Discharge - Discharge Plan Condition: Stable Disposition: HOME Patient Education Materials: Ankle Sprain (ED) Referrals: Swathi Presley MD [Primary Care Provider] - If Needed Additional Instructions: XRAY SHOWED: 1. POST SURGICAL CHANGE TO THE FIRST METATARSAL. 2. OSTEOARTHRITIS OF THE FIRST MTP JOINT. 3. NO ACUTE OSSEOUS INJURY OF THE LEFT ANKLE OR LEFT FOOT. REST, ICE, COMPRESS, ELEVATE. USE A CANE TO ASSIST IN AMBULATION. ZOHREH WRAP AND GEL SPLINT FOR ANKLE SUPPORT. FOLLOW-UP WITH YOUR PCP IF YOU ARE NOT IMPROVING EXPECTED OVER THE NEXT 2 WEEKS OR SO.
--- NOTE | 2017-10-13 09:11 | RAD ---
HISTORY: Left ankle and foot pain, trauma COMPARISONS: October 20, 2015 VIEWS: 6, Frontal, lateral, and oblique views of the left ankle and of the left foot FINDINGS: BONE DENSITY: Normal. BONES: The patient appears to be status post osteotomy of the first metatarsal with fixation screw. There is no hardware failure or osteolysis. There is no acute displaced fracture. JOINTS: There is moderate osteoarthritis of the first MTP joint. ALIGNMENT: There is no dislocation. SOFT TISSUES: Unremarkable. OTHER FINDINGS: None. IMPRESSION: 1. POST SURGICAL CHANGE TO THE FIRST METATARSAL. 2. OSTEOARTHRITIS OF THE FIRST MTP JOINT. 3. NO ACUTE OSSEOUS INJURY OF THE LEFT ANKLE OR LEFT FOOT. IF SYMPTOMS PERSIST, RECOMMEND REPEAT IMAGING
== END 2017-10-13 09:28 | disposition home or self-care (01) ==
LOC: UCEAST 07:40
DX: S93.402A Sprain of unspecified ligament of left ankle, initial encounter (principal); W18.49XA Other slipping, tripping and stumbling without falling, initial encounter; Y93.9 Activity, unspecified; Y92.9 Unspecified place or not applicable; M19.072 Primary osteoarthritis, left ankle and foot; I10 Essential (primary) hypertension; K21.9 Gastro-esophageal reflux disease without esophagitis; Z90.710 Acquired absence of both cervix and uterus; Z88.1 Allergy status to other antibiotic agents
CPT/HCPCS: 99213; G0463